=== PATIENT | male | born 1970 | race Caucasian/White ===

== ENCOUNTER 2017-05-21 09:11 | Day surgery (SDC) | payer BC ==
[~2017-05-21 09:11] MED LIST: Lactated Ringers 1,000 ML IV SCH; Sodium Chloride 0.9% 10 ML Syringe FLUSH PRN
[2017-05-21] MEDS ORDERED: fentaNYL 100 MCG/2 ML SDV ONE ×2 (09:52)
[2017-05-21] MEDS ORDERED: Propofol 200 MG/20 ML SDV ONE ×2 (09:52)
[2017-05-21] MEDS ORDERED: Midazolam 1 MG/ML 2 ML SDV ONE ×2 (09:52)
--- NOTE | 2017-05-21 09:54 | PCM.PN ---
- General Info Date of Service: 05/21/17 - Review of Systems Systems Review Comment:: 47 y/o male here for his first colonoscopy. He has had some episodes of rectal bleeding which was painless. He also has a family history of colon CA in a parent. He is medically stable to proceed with no significant changes to his health status since his last exam which is reviewed. I have discussed the proposed colonoscopy with the patient. Risks such as bleeding and GI injury discussed and he agrees to proceed. - Patient Data Vitals - Most Recent: Last Vital Signs Temp 98.4 F 05/21/17 09:27 Pulse 64 05/21/17 09:27 Resp 18 05/21/17 09:27 BP 121/85 05/21/17 09:27 Pulse Ox 96 05/21/17 09:27 Weight - Most Recent: 117.934 kg Med Orders - Current: Current Medications Lactated Ringer's (Ringers, Lactated) 1,000 mls @ 125 mls/hr IV ASDIRECTED NADER Last Admin: 05/21/17 09:36 Dose: 125 mls/hr Sodium Chloride (Saline Flush) 10 ml FLUSH ASDIRECTED PRN PRN Reason: Keep Vein Open - Problem List Review Problem List Initiated/Reviewed/Updated: Yes - My Orders Last 24 Hours: My Active Orders 05/21/17 09:00 Patient Status [ADT] Routine Peripheral IV Care [RC] . DIRECTED Verify Patient Consent Obtain [RC] ASDIRECTED Lactated Ringers [Ringers, Lactated] 1,000 ml IV ASDIRECTED Sodium Chloride 0.9% [Saline Flush] 10 ml FLUSH ASDIRECTED PRN Peripheral IV Insertion Adult [OM.PC] Routine - Assessment Assessment:: rectal bleeding family history of colon cancer - Plan Plan:: colonoscopy
--- NOTE | 2017-05-21 10:42 | PCM.OPNOTE ---
- General Post-Op/Procedure Note Date of Surgery/Procedure: 05/21/17 Operative Procedure(s): Colonoscopy Findings: Small Hemorrhoids Colon Normal Pre Op Diagnosis: Rectal Bleeding Post-Op Diagnosis: Hemorrhoids Anesthesia Technique: MAC Primary Surgeon: Mars Turner Pathology: none Output, Urine Amount: 0 EBL in mLs: 0 Complications: None Condition: Good Free Text/Narrative:: Intake & Output 05/20/17 05/21/17 05/21/17 22:59 06:59 14:59 Intake Total 750 Balance 750
[2017-05-21 11:27] VITALS: BP 123/88
--- NOTE | 2017-05-21 12:20 | OR ---
Date of Procedure: 05/21/2017 PREOPERATIVE DIAGNOSIS: Rectal bleeding. POSTOPERATIVE DIAGNOSIS: Hemorrhoids. OPERATION PERFORMED: Colonoscopy. INDICATIONS FOR SURGERY: This 47-year-old male has had multiple episodes of rectal bleeding recently. He also has a known family history of colon cancer in his mother. He is referred for colonoscopy. FINDINGS: The patient's colon and terminal ileum appeared normal. No polyps or visible inflammation is seen. The terminal ileum also appeared normal. The patient did have a few small internal hemorrhoids noted in the rectum, but without any visible signs of bleeding today. DESCRIPTION OF PROCEDURE: The patient was taken to the operating room. He was given intravenous sedation, and with him in the left lateral decubitus position, digital rectal exam was performed showing no rectal masses. The Olympus colonoscope was inserted into the rectum. The retroflexed examination of the rectal canal was performed. The scope was then carefully advanced under direct visualization through the entire length of the colon until the cecum was reached. This was somewhat difficult because of a long tortuous colon, but eventually with changes in patient's position and hand pressure, the scope was able to be advanced to the cecum. Cecal acquisition was confirmed by noting the normal internal cecal anatomy including the appendiceal orifice, the ileocecal valve and also noting the light to transilluminate the abdominal wall in the right lower quadrant. The terminal ilium was examined also and appeared normal. The scope was then slowly withdrawn, sequentially re-examining the colonic segments. Once the entire colon and rectum had been fully examined, the scope was removed, and the patient was taken from the operating room in satisfactory condition. ESTIMATED BLOOD LOSS: Zero. COMPLICATIONS: None. PROGNOSIS: Good. NANCY Turner MD /[id number]
== END 2017-05-21 12:20 | disposition home or self-care (01) ==
LOC: LL.SDS 09:11
PROVIDERS: ATTEND Surgery
DX: K64.8 Other hemorrhoids (principal); F41.8 Other specified anxiety disorders; Z87.891 Personal history of nicotine dependence; Z79.899 Other long term (current) drug therapy
CPT/HCPCS: 45378; J2250; J2704; J3010; J7120

== ENCOUNTER 2019-11-15 22:51 | Emergency (ER) | payer BC, OTHER ==
--- NOTE | 2019-11-15 23:16 | EDM.PDOC ---
ED HPI GENERAL MEDICAL PROBLEM - General Chief Complaint: Head Injury Stated Complaint: Head injury Time Seen by Provider: 11/15/19 23:11 Source of Information: Reports: Patient History Limitations: Reports: No Limitations - History of Present Illness INITIAL COMMENTS - FREE TEXT/NARRATIVE: Hit in left forehead by metal object at work No LOC No visual changes No neuro changes Onset: Today, Sudden Duration: Hour(s): Location: Reports: Head Quality: Reports: Ache Severity: Mild Left Forehead Pain Score (Numeric/FACES): 6 - Related Data Allergies Allergy/AdvReac Type Severity Reaction Status Date / Time No Known Allergies Allergy Verified 11/15/19 22:53 Home Meds: Home Meds Ibuprofen 400 mg PO Q4HR PRN 05/20/17 [History] Past Medical History HEENT History: Reports: None Cardiovascular History: Reports: None Respiratory History: Reports: Bronchitis, Recurrent Gastrointestinal History: Reports: Chronic Diarrhea Genitourinary History: Reports: None Musculoskeletal History: Reports: Neck Pain, Chronic, Other (See Below) Other Musculoskeletal History: crushed vertebrea in neck Neurological History: Reports: None Psychiatric History: Reports: Anxiety, Depression Endocrine/Metabolic History: Reports: Obesity/BMI 30+ Hematologic History: Reports: None Immunologic History: Reports: None Oncologic (Cancer) History: Reports: None Dermatologic History: Reports: None - Past Surgical History HEENT Surgical History: Reports: Oral Surgery, Other (See Below) Other HEENT Surgeries/Procedures: teeth pulled Social & Family History - Tobacco Use Years of Tobacco use: 20 Packs/Tins Daily: 0.5 - Caffeine Use Caffeine Use: Reports: Coffee, Tea - Recreational Drug Use Recreational Drug Use: No ED ROS GENERAL - Review of Systems Review Of Systems: See Below HEENT: Reports: Other (Left forehead swelling) Respiratory: Reports: No Symptoms Cardiovascular: Reports: No Symptoms GI/Abdominal: Reports: No Symptoms Musculoskeletal: Reports: No Symptoms Neurological: Reports: No Symptoms ED EXAM, HEAD INJURY - Physical Exam Exam: See Below Exam Limited By: No Limitations General Appearance: Alert, WD/WN, No Apparent Distress Head: Other (Left forehead with mild swelling and ecchymosis) Eyes: Bilateral Eye: EOMI, Normal Fundi, PERRL Ears: Normal TMs Nose: Normal Inspection Throat/Mouth: Normal Oropharynx Neck: Non-Tender Neurologic: Normal Mood/Affect, Oriented x 3, Other (GCS-15) Course - Vital Signs Last Recorded V/S: Last Vital Signs Temp 98.3 F 11/15/19 23:02 Pulse 77 11/15/19 23:02 Resp 12 11/15/19 23:02 BP 128/85 11/15/19 23:02 Pulse Ox 99 11/15/19 23:02 - Re-Assessments/Exams Free Text/Narrative Re-Assessment/Exam: 11/15/19 23:14 Pt stable in ER Departure - Departure Time of Disposition: 23:15 Disposition: Home, Self-Care 01 Clinical Impression: Forehead contusion Qualifiers: Encounter type: initial encounter Qualified Code(s): S00.83XA - Contusion of other part of head, initial encounter - Discharge Information *PRESCRIPTION DRUG MONITORING PROGRAM REVIEWED*: Not Applicable *COPY OF PRESCRIPTION DRUG MONITORING REPORT IN PATIENT KAREN: Not Applicable Instructions: Contusion, [id number] Referrals: Juan Whitaker, PA [Primary Care Provider] - Additional Instructions: Ice as needed Tylenol or Motrin as needed Sepsis Event Note - Evaluation Sepsis Screening Result: No Definite Risk - Focused Exam Vital Signs: Vital Signs Temp Pulse Resp BP Pulse Ox 11/15/19 23:02 98.3 F 77 12 128/85 99 Date Exam was Performed: 11/15/19 Time Exam was Performed: 23:11
== END 2019-11-15 23:20 | disposition home or self-care (01) ==
LOC: LL.ED 22:51
CPT/HCPCS: 99283